=== PATIENT | female | born 1960 | race Hispanic/Latino ===

== ENCOUNTER 2024-04-28 12:46 | Emergency (ER) | payer SELFPAY ==
[~2024-04-28] VITALS: Ht 152.4 cm; Wt 59.0 kg
[2024-04-28] MEDS: KETOROLAC 30MG VIAL (30MG/ML) IM ONE (13:48)
[2024-04-28] MEDS ORDERED: ACET-2079 PO (15:11)
[2024-04-28 15:46] VITALS: BP 156/61; PULSE 73; RESP 16; O2SAT 99
== END 2024-04-28 15:49 | disposition home or self-care (01) ==
LOC: EDH 12:46
DX: S82.091A Other fracture of right patella, initial encounter for closed fracture (principal); E11.9 Type 2 diabetes mellitus without complications; E78.00 Pure hypercholesterolemia, unspecified; I10 Essential (primary) hypertension; X58.XXXA Exposure to other specified factors, initial encounter; Y93.89 Activity, other specified; Y92.89 Other specified places as the place of occurrence of the external cause; Y99.8 Other external cause status
CPT/HCPCS: 99284; 73562; 96372; J1885

== ENCOUNTER 2024-07-06 22:33 | Emergency (ER) | payer SELFPAY ==
[~2024-07-06] VITALS: Ht 154.9 cm; Wt 56.7 kg
[~2024-07-06 22:33] MED LIST: ACET-2079 PO
[2024-07-06 22:51] LABS: BASOPHILS # (AUTO) 0.01 K/uL (0.00-0.20); BASOPHILS % (AUTO) 0.1 % (0.0-5.0); EOSINOPHILS # (AUTO) 0.09 K/uL (0.00-0.70); EOSINOPHILS % (AUTO) 1.2 % (0.0-8.0); HEMATOCRIT 31.3 % (36-48); IMMATURE GRANULOCYTE ABSOLUTE 0.04 K/uL (0-1); LYMPHOCYTES # (AUTO) 0.7 K/uL (1.0-4.8); MEAN CORPUSCULAR HEMOGLOBIN 30.5 pg (27.0-33.0); MEAN CORPUSCULAR HGB CONC 36.1 g/dL (32.0-36.0); MEAN CORPUSCULAR VOLUME 84.6 fL (79-99); MONOCYTES # (AUTO) 0.4 K/uL (0.1-1.0); MONOCYTES % (AUTO) 6.1 % (3.0-13.0); PLATELET COUNT (AUTO) 137 K/uL (130-400); RED CELL DISTRIBUTION WIDTH 13.2 % (11.0-15.5); WHITE BLOOD COUNT (AUTO) 7.3 K/uL (4.8-10.8)
[2024-07-06 23:13] LABS: CREATININE 1.4 mg/dL (0.5-1.0)
[2024-07-06] MEDS: 0.9%NACL 1000ML 1,000 ML IV ONE (23:41)
[2024-07-06] MEDS: INSULIN humuLIN R 100 UNIT/ML 3ML SQ ONE (23:49)
[2024-07-07] MEDS: hydrALAZine 20MG/ML VIAL IV ONE (00:11)
[2024-07-07] MEDS: AMOX/CLAV 875/125MG TAB PO ONE (02:34)
[2024-07-07] MEDS ORDERED: AMOX-426 PO (02:44)
[2024-07-07 02:56] VITALS: BP 148/66; PULSE 74; RESP 18; TEMP 97.2; O2SAT 98
[2024-07-07 02:58] LABS: APPEARANCE,URINE CLEAR (CLEAR); BILIRUBIN,URINE NEGATIVE (NEGATIVE); COLOR,URINE LIGHT-YELLOW (YELLOW); GLUCOSE, URINE (UA) >=1000 mg/dL (NEGATIVE); KETONES,URINE NEGATIVE (NEGATIVE); LEUKOCYTE ESTERASE ,URINE NEGATIVE Leu/uL (NEGATIVE); NITRATE,URINE NEGATIVE (NEGATIVE); OCCULT BLOOD,URINE NEGATIVE (NEGATIVE); PROTEIN,URINE 50 mg/dL (NEGATIVE); SQUAMOUS EPITHELIAL CELL,UR RARE /HPF (0-2); UROBILINOGEN,URINE 0.2 mg/dL (0.2-1.0)
== END 2024-07-07 02:59 | disposition home or self-care (01) ==
LOC: EDH 22:33
DX: E11.621 Type 2 diabetes mellitus with foot ulcer (principal); L97.519 Non-pressure chronic ulcer of other part of right foot with unspecified severity; I10 Essential (primary) hypertension; E78.00 Pure hypercholesterolemia, unspecified; M19.90 Unspecified osteoarthritis, unspecified site; E11.65 Type 2 diabetes mellitus with hyperglycemia; H54.40 Blindness, one eye, unspecified eye
CPT/HCPCS: 99284; 80048; 85025; 82948 ×2; 83605; 81001; 36415; 73630; 96372; 96374; J1815; J0360